=== PATIENT | male | born 1995 | race Caucasian/White ===

== ENCOUNTER 2022-04-12 22:44 | Emergency (ER) | payer OTHER, SELFPAY ==
--- NOTE | ~2022-04-12 | XR_ITS ---
EXAMINATION: XR ANKLE, LEFT XR FOOT, LEFT CLINICAL INFORMATION: Rolled ankle. COMPARISON: None TECHNIQUE: 2 views of the left ankle. 3 additional views of the left foot. FINDINGS: Left ankle: No fracture or dislocation. The ankle mortise is congruent. No ankle joint effusion. The soft tissues are unremarkable. Left foot: No fracture or dislocation. Appropriate alignment. Joint spaces are maintained. The soft tissues are unremarkable. XR/XR foot LT 2V IMPRESSION: No fracture or malalignment involving the left foot or ankle.
--- NOTE | ~2022-04-12 | XR_ITS ---
EXAMINATION: XR ANKLE, LEFT XR FOOT, LEFT CLINICAL INFORMATION: Rolled ankle. COMPARISON: None TECHNIQUE: 2 views of the left ankle. 3 additional views of the left foot. FINDINGS: Left ankle: No fracture or dislocation. The ankle mortise is congruent. No ankle joint effusion. The soft tissues are unremarkable. Left foot: No fracture or dislocation. Appropriate alignment. Joint spaces are maintained. The soft tissues are unremarkable. XR/XR ankle LT 2V IMPRESSION: No fracture or malalignment involving the left foot or ankle.
[2022-04-12 23:28] VITALS: BP 123/67; PULSE 73; RESP 17; TEMP 36.7; O2SAT 98; BMI 22.8
--- NOTE | 2022-04-13 00:46 | ED.GENADULT ---
HPI - General Adult General Chief complaint: General Medical Stated complaint: left ankle inj,swollen Time Seen by Provider: 04/13/22 00:46 History of Present Illness HPI narrative: Patient is a 27-year-old male inverted his left ankle. Complaining of pain over the lateral malleolus. There is no head injury. There is no nausea no vomiting. No focal weakness took 2 Aleve at 19:00. Able to ambulate on the ankle Related Data Allergies Allergy/AdvReac Type Severity Reaction Status Date / Time penicillin V Allergy Unknown unknown - Unverified 09/05/17 00:00 childhood Penicillins [PENICILLINS] Allergy Unknown UNKNOWN Unverified 04/08/20 16:25 Review of Systems Review of Systems: No fever no chills no chest pain or shortness breath no nausea no vomiting Yes all other systems are reviewed and are negative [facility] Past Medical History Attestation statement: The following information was validated with the patient. Physical Exam ED Vital Signs: Vital Signs - 24 hr 04/12/22 23:28 Temperature 98.1 F Pulse Rate 73 Respiratory Rate 17 Blood Pressure 123/67 Pulse Oximetry 98 Oxygen Delivery Method Room Air BMI result Body Mass Index 22.8 Appearance: Alert. Oriented X3. No acute distress. Eyes: Pupils equal, round and reactive to light. ENT: Pharynx normal. Neck: Normal inspection. Neck supple. No lymph nodes noted. No crepitus CVS: Normal heart rate and rhythm. Pulses normal. Normal S1 and S2 Respiratory: No respiratory distress. Breath sounds normal. No Wheezing. No rales Abdomen: Soft and nontender. No rigidity. No distention. good BS x4 Skin: Skin warm and dry. Normal skin color. Normal skin turgor. Extremities: No lower extremity edema. Neurovascular intact to all extremities. No Lacerations. No Rash. Left ankle- Minimal posterior lateral malleolus pain on palpation no pain on the medial malleolus. No pain at the base of the 5th metatarsal. Pulse 2 + at dorsalis pedis. Sensation intact. Ambulates with a normal gait Neuro: Oriented X 3. No motor deficit. No sensory deficit. Moving all extermities. No slurred speech Medical Decision Making MDM Narrative Medical decision making narrative: X-ray showed no acute fracture likely a sprain Motrin Aleve for pain ice elevate follow up as needed Discharge Plan Discharge Clinical Impression: Ankle sprain Instructions: Ankle Sprain (ED) Additional Instructions: Ice elevate Motrin for pain Referrals: Leonides Boo MD [Physician] -
[2022-04-13 01:01] VITALS: BP 121/70; PULSE 74; RESP 18; TEMP 36.6; O2SAT 98
--- NOTE | 2022-04-13 01:08 | PC.NURSE ---
Reviewed discharge instructions with pt . pt verbalized understanding.
== END 2022-04-13 01:09 | disposition home or self-care (01) ==
PROVIDERS: Emergency Provider Emergency Medicine Emergency Medical Services; PCP Nurse Practitioner Family
DX: S93.402A Sprain of unspecified ligament of left ankle, initial encounter (principal); X58.XXXA Exposure to other specified factors, initial encounter; Y93.9 Activity, unspecified; Y92.9 Unspecified place or not applicable; Y99.9 Unspecified external cause status
CPT/HCPCS: 73600; 73620; 99283

== ENCOUNTER → 2022-05-04 11:24 | Outpatient (BNVA) | payer OTHER, SELFPAY | PROVIDERS: PCP Nurse Practitioner Family; Visit Provider Physician Assistant | DX: S93.402A Sprain of unspecified ligament of left ankle, initial encounter (principal) | CPT/HCPCS: 99202 ==

== ENCOUNTER 2022-05-18 12:40 | Outpatient (REF) | payer OTHER, SELFPAY ==
--- NOTE | ~2022-05-18 | XR_ITS ---
EXAMINATION: EXTREMELY RIGHT KNEE X-RAY LEFT KNEE X-RAY STANDING BILATERAL KNEES CLINICAL INFORMATION: Pain. COMPARISON: Radiograph of the left knee 03/06/2019. Radiograph of the right knee 09/24/2017. TECHNIQUE: 2 views of each knee. Single AP standing view of both knees. FINDINGS: No acute fractures or subluxation. Healed bilateral patellar fractures. Redemonstration of 2 threaded screws vertically oriented along the right patella and a single threaded screw vertically oriented on the left patella. No evidence of hardware failure. No significant joint space narrowing nor bony productive changes. Small right-sided joint effusion. XR/XR knee standing BI IMPRESSION: 1. No acute fractures or subluxation. 2. Healed bilateral patellar fractures. 3. No evidence of hardware failure. 4. Small right-sided joint effusion.
--- NOTE | ~2022-05-18 | XR_ITS ---
EXAMINATION: EXTREMELY RIGHT KNEE X-RAY LEFT KNEE X-RAY STANDING BILATERAL KNEES CLINICAL INFORMATION: Pain. COMPARISON: Radiograph of the left knee 03/06/2019. Radiograph of the right knee 09/24/2017. TECHNIQUE: 2 views of each knee. Single AP standing view of both knees. FINDINGS: No acute fractures or subluxation. Healed bilateral patellar fractures. Redemonstration of 2 threaded screws vertically oriented along the right patella and a single threaded screw vertically oriented on the left patella. No evidence of hardware failure. No significant joint space narrowing nor bony productive changes. Small right-sided joint effusion. XR/XR knee LT 2V IMPRESSION: 1. No acute fractures or subluxation. 2. Healed bilateral patellar fractures. 3. No evidence of hardware failure. 4. Small right-sided joint effusion.
--- NOTE | ~2022-05-18 | XR_ITS ---
EXAMINATION: EXTREMELY RIGHT KNEE X-RAY LEFT KNEE X-RAY STANDING BILATERAL KNEES CLINICAL INFORMATION: Pain. COMPARISON: Radiograph of the left knee 03/06/2019. Radiograph of the right knee 09/24/2017. TECHNIQUE: 2 views of each knee. Single AP standing view of both knees. FINDINGS: No acute fractures or subluxation. Healed bilateral patellar fractures. Redemonstration of 2 threaded screws vertically oriented along the right patella and a single threaded screw vertically oriented on the left patella. No evidence of hardware failure. No significant joint space narrowing nor bony productive changes. Small right-sided joint effusion. XR/XR knee RT 2V IMPRESSION: 1. No acute fractures or subluxation. 2. Healed bilateral patellar fractures. 3. No evidence of hardware failure. 4. Small right-sided joint effusion.
== END 2022-05-18 12:41 | disposition home or self-care (01) ==
LOC: HO.HOSX 12:40
PROVIDERS: Visit Provider Orthopaedic Surgery
DX: Z02.3 Encounter for examination for recruitment to armed forces (principal); M25.562 Pain in left knee; M25.561 Pain in right knee; Z87.81 Personal history of (healed) traumatic fracture
CPT/HCPCS: 73560; 73565; 99202

== ENCOUNTER 2022-07-19 23:17 | Emergency (ER) | payer OTHER, SELFPAY ==
[2022-07-19 23:41] VITALS: BP 113/61; PULSE 63; RESP 20; TEMP 36.6; O2SAT 98; BMI 23.6
[2022-07-20] LABS: MANUAL DIFF FLAG NO
[2022-07-20 00:08] LABS: Basophils Percent Auto 0.3 % (0-2); Eosinophils Absolute Auto 0.1 X10*3/uL (0.0-0.4); Eosinophils Percent Auto 1.2 % (0-4); Hematocrit 40.7 % (42.0-52.0); Hemoglobin 13.6 g/dl (14.0-18.0); Imm Gran Abs Auto 0.01 X10*3/uL (0.00-0.03); Imm Gran Pct Auto 0.2 % (0.0-0.4); Lymphocytes Absolute Auto 2.9 X10*3/uL (1.2-4.9); Lymphocytes Percent Auto 43.1 % (20-40); Mean Corpuscular HGB Conc 33.4 g/dl (31.0-36.0); Mean Corpuscular Hemoglobin 30.3 pg (27.0-33.0); Mean Corpuscular Volume 90.6 fL (80.0-98.0); Mean Platelet Volume 9.5 fL (9.4-12.4); Monocytes Absolute Auto 0.5 X10*3/uL (0.1-1.2); Monocytes Percent Auto 7.1 % (2-11); Neutrophils Absolute Auto 3.2 x10*3/uL (2.0-8.3); Neutrophils Percent Auto 48.1 % (45-73); Platelet Count 266 X10*3/uL (160-400); Red Blood Count 4.49 X10*6/uL (4.60-5.80); Red Cell Distribution Width 12.9 % (11.0-16.0); White Blood Count 6.7 X10*3/uL (4.8-10.8)
[2022-07-20 00:24] LABS: Alanine Aminotransferase 12 U/L (0-40); Albumin Level 4.4 g/dL (3.5-5.0); Alkaline Phosphatase 38 U/L (39-117); Anion Gap 12 (12-20); Aspartate Amino Transferase 13 U/L (5-37); Bilirubin Direct < 0.2 mg/dL (0.0-0.5); Bilirubin Total 0.3 mg/dL (0.0-1.0); Blood Urea Nitrogen 16 mg/dL (9-16); Calcium 9.1 mg/dL (8.4-10.2); Carbon Dioxide 26 mmol/L (22-29); Chloride 107 mmol/L (96-108); Creatinine Clr Calc Pharmacy 95.8; Estimated Glomerular Filt Rate > 60; Glucose Random 78 mg/dL (60-115); Lipase 65 U/L (8-78); Potassium 4.2 mmol/L (3.3-5.1); Sodium 141 mmol/L (135-145); Total Protein 6.9 g/dL (6.5-8.0)
[2022-07-20 00:37] VITALS: BP 90/53; PULSE 58; TEMP 36.4; O2SAT 96
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
== END 2022-07-20 01:40 | disposition home or self-care (01) ==
PROVIDERS: Emergency Provider Emergency Medicine; PCP Nurse Practitioner Family
DX: G89.29 Other chronic pain (principal); R10.9 Unspecified abdominal pain
CPT/HCPCS: 36415; 80048; 80076; 83690; 85025; 99283

== ENCOUNTER → 2022-08-15 13:49 | Outpatient (BNVA) | payer OTHER, SELFPAY | PROVIDERS: PCP Nurse Practitioner Family; Referring Provider Nurse Practitioner Family; Visit Provider Nurse Practitioner Family | DX: R10.9 Unspecified abdominal pain (principal); R14.0 Abdominal distension (gaseous); K62.5 Hemorrhage of anus and rectum | CPT/HCPCS: 99202 ==